=== PATIENT | female | born 1975 | race African-American/Black ===

== ENCOUNTER 2017-09-18 18:47 | Emergency (ER) | payer OTHER | END 2017-09-18 19:49 | disposition home or self-care (01) | LOC: ER 18:47 | DX: M79.604 Pain in right leg (principal) | CPT/HCPCS: 73590; 99284 ==

== ENCOUNTER 2017-12-21 14:23 | Observation (INO) | payer OTHER ==
[2017-12-21 15:35] LABS: ADD MAN DIFF? NO
[2017-12-21 15:38] LABS: BASO # 0.1 x10^3/uL (0.0-0.2); BASO % 1 % (0-3); EOS # 0.1 x10^3/uL (0.0-0.7); EOS % 2 % (0-3); HEMATOCRIT 39.9 % (36.0-47.0); HEMOGLOBIN 13.1 g/dL (12.0-15.5); LYMPH # 2.3 x10^3/uL (1.0-4.8); LYMPH % 40 % (24-48); MEAN CORPUSCULAR HEMOGLOBIN 29 pg (25-35); MEAN CORPUSCULAR HGB CONC 33 g/dL (31-37); MEAN CORPUSCULAR VOLUME 88 fL (79-100); MONO # 0.5 x10^3/uL (0.0-1.1); MONO % 8 % (0-9); NEUT # 2.8 x10^3uL (1.8-7.7); NEUT % 49 % (31-73); PLATELET COUNT 182 x10^3/uL (140-400); RED BLOOD COUNT 4.53 x10^6/uL (3.50-5.40); RED CELL DISTRIBUTION WIDTH 12.9 % (11.5-14.5); WHITE BLOOD COUNT 5.7 x10^3/uL (4.0-11.0)
[2017-12-21] MEDS: ONDANSETRON PF 4 MG/2 ML VIAL. IV (15:46)
[2017-12-21] MEDS: cloNIDine HCL 0.1 MG TABLET PO (15:46)
[2017-12-21 15:48] LABS: PARTIAL THROMBOPLASTIN TIME 25 SEC (24-38); PROTHROMBIN TIME PATIENT 12.5 SEC (11.7-14.0)
[2017-12-21 15:54] LABS: ANION GAP 9 (6-14); BLOOD UREA NITROGEN 7 mg/dL (7-20); BUN/CREATININE RATIO 8 (6-20); CALCIUM 8.8 mg/dL (8.5-10.1); CARBON DIOXIDE 27 mmol/L (21-32); CHLORIDE 103 mmol/L (98-107); CREATININE 0.9 mg/dL (0.6-1.0); GFR 83.9; GLUCOSE 81 mg/dL (70-99); POTASSIUM 3.8 mmol/L (3.5-5.1); SODIUM 139 mmol/L (136-145)
[2017-12-21 15:56] LABS: ETHANOL < 10 mg/dL (0-10)
[2017-12-21 16:00] LABS: ALBUMIN 3.4 g/dL (3.4-5.0); ALBUMIN/GLOBULIN RATIO 0.8 (1.0-1.7); ALK PHOS 91 U/L (46-116); ALT (SGPT) 18 U/L (14-59); AST (SGOT) 22 U/L (15-37); TOTAL BILIRUBIN 0.4 mg/dL (0.2-1.0); TOTAL PROTEIN 7.7 g/dL (6.4-8.2)
[2017-12-21 16:03] LABS: TROPONINI < 0.017 ng/mL (0.000-0.055)
[2017-12-21 16:04] LABS: NT-PRO BNP 46 pg/mL (0-124)
[2017-12-21 16:07] LABS: THYROID STIM HORMONE (TSH) 1.594 uIU/mL (0.358-3.74)
[2017-12-21] MEDS ORDERED: ONDANSETRON PF 4 MG/2 ML VIAL. IV (17:30)
[2017-12-21] MEDS ORDERED: LABETALOL 20 MG/4 ML DISP.SYRIN. IVP (17:30)
[2017-12-22 03:26] LABS: ADD MAN DIFF? NO
[2017-12-22 03:30] LABS: BASO % 1 % (0-3); EOS # 0.1 x10^3/uL (0.0-0.7); EOS % 2 % (0-3); HEMATOCRIT 37.5 % (36.0-47.0); HEMOGLOBIN 12.6 g/dL (12.0-15.5); LYMPH # 2.2 x10^3/uL (1.0-4.8); LYMPH % 47 % (24-48); MEAN CORPUSCULAR HEMOGLOBIN 29 pg (25-35); MEAN CORPUSCULAR HGB CONC 34 g/dL (31-37); MEAN CORPUSCULAR VOLUME 88 fL (79-100); MONO # 0.3 x10^3/uL (0.0-1.1); MONO % 7 % (0-9); NEUT # 2.1 x10^3uL (1.8-7.7); NEUT % 44 % (31-73); PLATELET COUNT 163 x10^3/uL (140-400); RED BLOOD COUNT 4.26 x10^6/uL (3.50-5.40); WHITE BLOOD COUNT 4.7 x10^3/uL (4.0-11.0)
[2017-12-22 04:03] LABS: ANION GAP 7 (6-14); BLOOD UREA NITROGEN 8 mg/dL (7-20); CARBON DIOXIDE 28 mmol/L (21-32); CHLORIDE 104 mmol/L (98-107); CREATININE 0.9 mg/dL (0.6-1.0); GFR 83.9; GLUCOSE 85 mg/dL (70-99); POTASSIUM 3.7 mmol/L (3.5-5.1); SODIUM 139 mmol/L (136-145)
[2017-12-22] MEDS: ACETAMINOPHEN 325 MG TABLET. PO (08:30)
[2017-12-22] MEDS ORDERED: ONDANSETRON PF 4 MG/2 ML VIAL. IV (09:00)
[2017-12-22] MEDS: CITALOPRAM 20 MG TABLET. PO (12:13)
[2017-12-22] MEDS ORDERED: IBUPROFEN 800 MG TABLET. PO (14:15)
== END 2017-12-22 20:00 | disposition home or self-care (01) ==
LOC: 6 SOUTH 18:23 → ER 14:23 → 6 SOUTH 17:17
DX: G43.909 Migraine, unspecified, not intractable, without status migrainosus (principal); E66.9 Obesity, unspecified; M54.32 Sciatica, left side; J45.909 Unspecified asthma, uncomplicated; I16.0 Hypertensive urgency; I10 Essential (primary) hypertension; G89.29 Other chronic pain; D64.9 Anemia, unspecified; Z68.36 Body mass index [BMI] 36.0-36.9, adult; Z82.49 Family history of ischemic heart disease and other diseases of the circulatory system; Z90.710 Acquired absence of both cervix and uterus; Z79.899 Other long term (current) drug therapy
CPT/HCPCS: 36415; 70450; 70551; 71045; 72141; 72148; 80048; 80053; 83735; 83880; 84443; 84484; 85025; 85610; 85730; 93005; 96374; 99285-25; G0378; G0379; G0480; J2405

== ENCOUNTER → 2018-09-18 | Outpatient (CLI) | payer OTHER ==
[2017-12-22 15:55] VITALS: BP 151/100
[~2018-09-18] MED LIST: ALBU2.5V8 INH; DIPH25CA58 PO; DOCU-109 PO; FEXO180T81 PO; HYDR-2761 PO; HYDR-2765 PO; IBUP-1007 PO; IBUP-1060 PO; IRON1TAB2 PO; LISI2.5T PO; METR500T PO; MULT1TAB52 PO; OXYC1TAB15 PO
--- NOTE | 2018-09-18 16:15 | KCIC ---
Bilateral digital screening mammograms: Reason for examination: Routine baseline screening. Interpretation was made with the benefit of CAD. The skin and nipples show no abnormalities. No abnormal axillary lymph nodes are seen. The breast parenchyma is heterogeneously dense. (Breast density: Category C.) There are no dominant masses, suspicious calcifications or architectural distortion. Impression: No evidence of malignancy. Recommend routine screening. Your patient's mammogram demonstrates that she has dense breast tissue (breast density category C or D), which could hide abnormalities, and if she has other risk factors for breast cancer that have been identified, she might benefit from supplemental screening tests that may be suggested by you as her ordering physician. Dense breast tissue, in and of itself, is a relatively common condition. Therefore, this information is not provided to cause undue concern, but rather to raise your awareness and to promote discussion with your patient regarding the presence of other risk factors, in addition to dense breast tissue. Your patient's mammography results will be sent to her. BI-RAD Category 1: Negative. "Our facility is accredited by the [employer] Mammography [employer]." This patient's information has been entered into a reminder system for the patient to be notified with the results of her examination and a target date for the next mammogram. Electronically signed by: Rebeca Black MD (09/18/2018 4:11 PM) [id number]
== END | disposition home or self-care (01) ==
LOC: KCIC MAMMO 12:52
PROVIDERS: ATTEND Nurse Practitioner Family
DX: Z12.31 Encounter for screening mammogram for malignant neoplasm of breast (principal)
CPT/HCPCS: 77067